=== PATIENT | female | born 1965 | race Caucasian/White ===

== ENCOUNTER 2021-11-18 15:07 | Outpatient (CLI) | payer OTHER, SELFPAY ==
--- NOTE | 2021-11-18 | XR_ITS ---
WS: [id number] ANKLE RIGHT TECHNIQUE: 3 views of the right ankle CLINICAL INFORMATION: RIGHT ANKLE PAIN COMPARISON: None. FINDINGS: Prior postoperative changes plate and screw fixation distal fibula. Plate and screw fixation distal t ibia extending to the tibial plafond. Bony bridging across the syndesmosis. Normal ankle mortise. Sli ght sclerosis involving the talar dome. Tiny well-corticated chronic avulsion tip of the medial malle olus. No evidence of hardware loosening. Plantar calcaneal spurring. Achilles enthesophyte. Soft tiss ue edema. XR/XR ankle RT min 3V* [id number] IMPRESSION: Postoperative changes described above. No evidence of hardware loosening.
--- NOTE | 2021-11-18 | XR_ITS ---
WS: [id number] HIP WITH PELVIS RIGHT TECHNIQUE: 3 views of the right hip with pelvis CLINICAL INFORMATION: RIGHT HIP PAIN COMPARISON: None. FINDINGS: Mild degenerative arthritis right hip with slight hypertrophic spurring about the acetabulum. No acut e fractures. Normal femoral neck. Partially visualized right pubic rami appear normal. Pelvic phlebol ith. XR/XR hip RT 2-3V wo/w pel* [id number] IMPRESSION: Mild degenerative arthritis right hip. No acute fractures. Tonnis classification: grade 1: sclerosis of femoral head and acetabulum or sli ght joint space narrowing or slight lippig at joint margins
--- NOTE | 2021-11-18 | XR_ITS ---
WS: [id number] KNEE RIGHT TECHNIQUE: 3 views of the right knee CLINICAL INFORMATION: RIGHT KNEE PAIN COMPARISON: None. FINDINGS: Right knee is normal in appearance. No evidence of acute fracture dislocation. Mild soft tissue edema . Small suprapatellar effusion.. XR/XR knee RT 3V* [id number] IMPRESSION: Mild soft tissue edema. Small suprapatellar effusion.. Kellgren-Jacobo Classification: grade 0 (none): definite absence of x-ray mohinder nges of osteoarthritis
== END 2021-11-18 15:08 | disposition home or self-care (01) ==
PROVIDERS: Visit Provider Chiropractor
DX: M25.561 Pain in right knee (principal); M25.571 Pain in right ankle and joints of right foot; R60.0 Localized edema; M25.461 Effusion, right knee; M16.11 Unilateral primary osteoarthritis, right hip
CPT/HCPCS: 73502; 73562; 73610